=== PATIENT | female | born 1990 | race African-American/Black ===

== ENCOUNTER 2019-10-04 16:26 | Inpatient (IN) | payer OTHER, SELFPAY ==
[2019-10-04] VITALS (105 sets, daily range): BP systolic 125–185; BP diastolic 60–108; PULSE 90–116; RESP 18; TEMP 36.8; O2SAT 93–99; BMI 29.0
--- NOTE | ~2019-10-04 | XR_ITS ---
EXAMINATION: XR chest 1V portable INDICATION: hypoxia and shortness of breath TECHNIQUE: Portable AP chest at 1602 hours COMPARISON: None available FINDINGS: There are interstitial and airspace opacities of the mid and lower lung zones. No definite pleural effusion or pneumothorax is identified. The cardiomediastinal silhouette is normal. IMPRESSION: 1. Opacities of the mid and lower lung zones which could reflect atelectasis, pulmonary edema, or pos sibly pneumonia. Reviewed, dictated and finalized at location A. R PROCESSOR IMPRESSION: 1. Opacities of the mid and lower lung zones which could reflect atelectasis, p ulmonary edema, or possibly pneumonia.
--- NOTE | ~2019-10-04 | US_ITS ---
EXAMINATION: US venous doppler [facility] DATE: 10/07/2019 12:36 INDICATION: Bilateral lower limb edema TECHNIQUE: James scale images without and with compression and Doppler images of the bilateral lower e xtremity veins were obtained. COMPARISON: None. FINDINGS: The right common femoral vein, profunda femoral vein, femoral vein, popliteal vein, peroneal trunk, p osterior tibial veins, and greater saphenous vein are patent. The left common femoral vein, profunda femoral vein, femoral vein, popliteal vein, peroneal trunk, po sterior tibial veins, and greater saphenous vein are patent. IMPRESSION: 1. Patent bilateral lower extremity veins. No evidence of deep venous thrombosis. Reviewed, dictated and finalized at location A. CTOR OF MEDICAL SERVICES IMPRESSION: 1. Patent bilateral lower extremity veins. No evidence of deep venous thrombosi s.
--- NOTE | ~2019-10-04 | XR_ITS ---
EXAMINATION: XR chest 1V portable INDICATION: Shortness of breath, three days TECHNIQUE: Portable AP chest at 0839 hours COMPARISON: 10/06/2019 FINDINGS: Bilateral interstitial and airspace opacities have decreased. There is minimal airspace opa city of the lung bases. There are small pleural effusions. No pneumothorax is identified. The cardiom ediastinal silhouette is normal for technique. A calcified nodule of the right midlung zone is consis tent with old granulomatous disease. IMPRESSION: 1. Small pleural effusions. 2. Improvement in bilateral interstitial and airspace opacities with mild residual airspace opacity o f the lung bases, likely passive atelectasis. Reviewed, dictated and finalized at location A. CUTTER IMPRESSION: 1. Small pleural effusions. 2. Improvement in bilateral interstitial and airspace opacities with mild resid ual airspace opacity of the lung bases, likely passive atelectasis.
[2019-10-04] MEDS: LABETALOL HCL INJ 100 MG/20 ML VIAL 20 MG IV PUSH (17:14)
[2019-10-04 17:16] LABS: Basophils Percent Auto 0.4 % (0.2-1.2); Eosinophils Absolute Auto 0.2 K/mm3 (0-0.3); Eosinophils Percent Auto 1.8 % (0-4.4); Hematocrit 30.6 % (37.0-47.0); Hemoglobin 9.9 g/dL (12.0-15.0); Immature Granulocyte Absolute 0.04 K/mm3 (0.00-0.031); Immature Granulocyte Percent A 0.4 % (0-0.5); Immature Platelet Fraction Pct 22.3 % (0.9-11.2); Lymphocytes Absolute Auto 1.92 K/mm3 (0.9-3.2); Mean Corpuscular HGB Conc 32.4 g/dl (32-36); Mean Corpuscular Volume 86.4 fl (80-100); Mean Platelet Volume 14.4 fl (7.4-10.4); Monocytes Percent Auto 10.1 % (2.6-8.5); Neutrophils Absolute Auto 6.9 K/mm3 (1.3-6.7); Neutrophils Percent Auto 68.3 % (45.5-73.1); Platelet Count Result 118 k/mm3 (150-375); Red Blood Count 3.54 M/mm3 (4.2-5.4); Red Cell Distribution Width 15.6 % (11.5-14.5); White Blood Count 10.1 K/mm3 (4.5-10.0)
[2019-10-04 17:19] LABS: Add Urine Microscopic? YES; Appearance Urine Cloudy (Clear); Bacteria Urine Trace /hpf; Bilirubin Urine Negative (Negative); Blood Urine 1+ (Negative); Color Urine Yellow (Yellow); Glucose Urine UA Negative (Negative); Ketones Urine Negative (Negative); Leukocyte Esterase Ur Trace LEU/UL (Negative); Mucus Urine Rare /lpf; Nitrate Urine Negative (Negative); Protein Urine 3+ mg/dL (Negative); Renal Epithelial Cells Urine Rare /hpf (None Seen); Specific Grav Ur 1.012 (1.001-1.035); Squamous Epithelial Cell Urine Many /hpf (Few); Urobilinogen Urine Negative mg/dL (<2.0); WBC Urine 16-20 /hpf
[2019-10-04] MEDS: LACTATED RINGERS 1,000 ML 75 ML IV CONT (17:21)
[2019-10-04] MEDS: MAGNESIUM SULF 4 GM/WATER100ML 4 GM/100 ML BAG IVPB (17:23)
[2019-10-04 17:26] LABS: Alanine Aminotransferase 61 U/L (4-35); Albumin Level 3.3 g/dL (3.5-5.1); Alkaline Phosphatase 205 U/L (38-126); Aspartate Amino Transferase 48 U/L (14-36); Bilirubin,Total 0.3 mg/dL (0.2-1.3); Blood Urea Nitrogen 12 mg/dL (7-17); Calcium 8.7 mg/dL (8.4-10.2); Carbon Dioxide 24 mmol/L (22-30); Chloride 101 mmol/L (98-107); Estimated Glomerular Filt Rate > 60; Glucose 88 mg/dL (65-105); Lactate Dehydrogenase 628 U/L (313-618); Potassium 3.5 mmol/L (3.4-5.0); Sodium 136 mmol/L (137-145); Uric Acid 5.1 mg/dL (2.5-7.5)
[2019-10-04] MEDS: LABETALOL HCL INJ 100 MG/20 ML VIAL 40 MG IV PUSH (17:28)
[2019-10-04] MEDS: BETAMETHASONE SOD PHOS/ACETATE 30 MG/5 ML VIAL 12 MG IM (17:34)
[2019-10-04 17:36] LABS: Creatinine Urine 65.1 mg/dL
[2019-10-04 17:40] LABS: Total Protein Urine Random 391 mg/dL
[2019-10-04] MEDS: MAGNESIUM SULF 20GM/WATER500ML 500 ML 50 MG IV CONT (17:54)
[2019-10-04] MEDS: hydrALAZINE HCL 20 MG/ML VIAL 5 MG IV PUSH (18:12)
[2019-10-04] MEDS: hydrALAZINE HCL 20 MG/ML VIAL 10 MG IV PUSH (18:40)
[2019-10-04] MEDS: LABETALOL HCL 100 MG TABLET 300 MG PO (19:11)
[2019-10-05] VITALS (121 sets, daily range): BP systolic 112–152; BP diastolic 60–101; PULSE 86–111; RESP 18; TEMP 36.5–36.8; O2SAT 91–99
--- NOTE | 2019-10-05 04:05 | PM.IMHP ---
H&P: HPI History of Present Illness Chief complaint: pih donnal Narrative: Pipe Conner is a 29 year old female 34 4/7 weeks by LMP c/w ultrasound for an EDC of 11/12/[address] Ramirez. Pregancy complicated by a abnormal Quad screen for down syndrome- normal chromosomes, MTHFR mutation and depression. patient was seen with MFM-[facility] for testing and had elvated BPs and sent to [facility] for evaluation. 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 Gender identity (if verbalized by the patient): Female Spiritual care concerns: No Agree to blood products: Yes Meds Home Medications and Allergies Home Medications Medication Instructions Recorded Confirmed Type aspirin 2 tablet PO DAILY 10/04/19 10/04/19 History calcium phosphate-vitamin D3 1 tablet PO DAILY 10/04/19 10/04/19 History [Caltrate Gummy Bites] cyanocobalamin (vitamin B-12) 1,000 mcg SUBCUT MONTHLY 10/04/19 10/04/19 History ferrous sulfate 325 mg PO DAILY 10/04/19 10/04/19 History folic acid 4 mg PO DAILY 10/04/19 10/04/19 History Allergies Allergy/AdvReac Type Severity Reaction Status Date / Time No Known Allergies Allergy Verified 10/04/19 17:09 Vital Signs Vital Signs - 24 hr 10/04/19 16:49 10/04/19 16:50 10/04/19 17:07 Temperature Pulse Rate 94 94 98 Respiratory Rate Blood Pressure 180/108 H 164/100 H Blood Pressure [Left Arm] 180/108 H Pulse Oximetry 10/04/19 17:14 10/04/19 17:16 10/04/19 17:17 Temperature Pulse Rate 94 95 97 Respiratory Rate Blood Pressure 172/105 H 161/104 H Blood Pressure [Left Arm] Pulse Oximetry 97 10/04/19 17:19 10/04/19 17:21 10/04/19 17:23 Temperature Pulse Rate 94 Respiratory Rate 18 Blood Pressure 172/107 H Blood Pressure [Left Arm] Pulse Oximetry 97 10/04/19 17:24 10/04/19 17:25 10/04/19 17:27 Temperature Pulse Rate 93 90 Respiratory Rate Blood Pressure 174/100 H 167/103 H Blood Pressure [Left Arm] Pulse Oximetry 97 10/04/19 17:28 10/04/19 17:29 10/04/19 17:31 Temperature Pulse Rate 92 96 Respiratory Rate Blood Pressure 164/94 H Blood Pressure [Left Arm] Pulse Oximetry 96 10/04/19 17:34 10/04/19 17:36 10/04/19 17:39 Temperature Pulse Rate 99 Respiratory Rate Blood Pressure 158/98 H Blood Pressure [Left Arm] Pulse Oximetry 96 96 10/04/19 17:41 10/04/19 17:44 10/04/19 17:46 Temperature Pulse Rate 98 96 Respiratory Rate Blood Pressure 158/104 H 157/100 H Blood Pressure [Left Arm] Pulse Oximetry 96 10/04/19 17:49 10/04/19 17:51 10/04/19 17:54 Temperature Pulse Rate 97 Respiratory Rate 18 Blood Pressure 155/97 H Blood Pressure [Left Arm] Pulse Oximetry 95 96 10/04/19 17:56 10/04/19 17:59 10/04/19 18:01 Temperature Pulse Rate 93 97 Respiratory Rate Blood Pressure 157/98 H 152/101 H Blood Pressure [Left Arm] Pulse Oximetry 95 10/04/19 18:03 10/04/19 18:06 10/04/19 18:11 Temperature Pulse Rate 101 H 94 Respiratory Rate Blood Pressure 169/103 H 155/104 H Blood Pressure [Left Arm] Pulse Oximetry 99 10/04/19 18:16 10/04/19 18:21 10/04/19 18:26 Temperature Pulse Rate 91 95 97 Respiratory Rate Blood Pressure 152/98 H 155/101 H 162/104 H Blood Pressure [Left Arm] Pulse Oximetry 10/04/19 18:31 02
[2019-10-05] MEDS: MAGNESIUM SULF 20GM/WATER500ML 500 ML 50 MG IV CONT ×2 (04:20→14:38)
[2019-10-05 05:05] LABS: Basophils Percent Auto 0.1 % (0.2-1.2); Hemoglobin 9.4 g/dL (12.0-15.0); Immature Granulocyte Absolute 0.06 K/mm3 (0.00-0.031); Immature Granulocyte Percent A 0.7 % (0-0.5); Immature Platelet Fraction Pct 22.4 % (0.9-11.2); Lymphocytes Absolute Auto 0.86 K/mm3 (0.9-3.2); Mean Corpuscular HGB Conc 32.4 g/dl (32-36); Mean Corpuscular Hemoglobin 28.1 pg (26-34); Mean Corpuscular Volume 86.8 fl (80-100); Mean Platelet Volume 14.2 fl (7.4-10.4); Monocytes Absolute Auto 0.3 K/mm3 (0.1-0.6); Monocytes Percent Auto 3.7 % (2.6-8.5); Neutrophils Absolute Auto 7.3 K/mm3 (1.3-6.7); Neutrophils Percent Auto 85.5 % (45.5-73.1); Platelet Count Result 117 k/mm3 (150-375); Red Blood Count 3.34 M/mm3 (4.2-5.4); Red Cell Distribution Width 15.7 % (11.5-14.5); White Blood Count 8.6 K/mm3 (4.5-10.0)
[2019-10-05 05:16] LABS: Alanine Aminotransferase 53 U/L (4-35); Albumin Level 2.9 g/dL (3.5-5.1); Alkaline Phosphatase 199 U/L (38-126); Aspartate Amino Transferase 50 U/L (14-36); Bilirubin,Total 0.4 mg/dL (0.2-1.3); Blood Urea Nitrogen 11 mg/dL (7-17); Calcium 7.8 mg/dL (8.4-10.2); Carbon Dioxide 20 mmol/L (22-30); Chloride 100 mmol/L (98-107); Estimated CRCL calculation 112 ml/min; Estimated Glomerular Filt Rate > 60; Glucose 105 mg/dL (65-105); Potassium 4.1 mmol/L (3.4-5.0); Sodium 134 mmol/L (137-145); Uric Acid 5.3 mg/dL (2.5-7.5)
[2019-10-05] MEDS: LACTATED RINGERS 1,000 ML 75 ML IV CONT ×2 (06:41→19:45)
[2019-10-05] MEDS: LABETALOL HCL 100 MG TABLET 300 MG PO ×2 (08:12→20:21)
[2019-10-05] MEDS: BETAMETHASONE SOD PHOS/ACETATE 30 MG/5 ML VIAL 12 MG IM (17:20)
[2019-10-06] VITALS (178 sets, daily range): BP systolic 109–153; BP diastolic 62–111; PULSE 81–102; RESP 18–22; TEMP 36.4–36.9; O2SAT 77–100
[2019-10-06] MEDS: MAGNESIUM SULF 20GM/WATER500ML 500 ML 50 MG IV CONT (00:32)
[2019-10-06 05:27] LABS: Hematocrit 28.7 % (37.0-47.0); Hemoglobin 8.9 g/dL (12.0-15.0); Immature Platelet Fraction Pct 25.9 % (0.9-11.2); Mean Corpuscular Hemoglobin 27.1 pg (26-34); Mean Corpuscular Volume 87.2 fl (80-100); Platelet Count Result 130 k/mm3 (150-375); Red Blood Count 3.29 M/mm3 (4.2-5.4); Red Cell Distribution Width 16.2 % (11.5-14.5); White Blood Count 11.3 K/mm3 (4.5-10.0)
[2019-10-06 05:37] LABS: Alanine Aminotransferase 78 U/L (4-35); Alkaline Phosphatase 196 U/L (38-126); Aspartate Amino Transferase 69 U/L (14-36); Bilirubin,Total 0.3 mg/dL (0.2-1.3); Blood Urea Nitrogen 13 mg/dL (7-17); Calcium 6.5 mg/dL (8.4-10.2); Carbon Dioxide 19 mmol/L (22-30); Chloride 98 mmol/L (98-107); Estimated CRCL calculation 99 ml/min; Estimated Glomerular Filt Rate > 60; Glucose 113 mg/dL (65-105); Potassium 4.2 mmol/L (3.4-5.0); Sodium 131 mmol/L (137-145); Uric Acid 6.2 mg/dL (2.5-7.5)
[2019-10-06] MEDS: AMPICILLIN 2 GM/NS 100 ML 2 GM/100 ML BAG IVPB (05:48)
--- NOTE | 2019-10-06 05:55 | LDADM ---
This patient, Pipe Conner, was moved to OB labor room 106 on 10/06/19 at 05:31. Plans for labor, pain management and were discussed with patient. Patient/family oriented to hospital policies and general routines including ID bracelet, bed and alarms, visiting hours, pain management, procedures, bathroom and other care routines, personal items, smoking policy, room service/diet and guest tray routines, security routines, and visiting hours. Patient/Family are encouraged to report perceived risks to care and to ask questions if they do not understand what they are told or what they should do. See OBIX for further documentation.
[2019-10-06] MEDS: LACTATED RINGERS 1,000 ML 75 ML IV CONT (08:07)
--- NOTE | 2019-10-06 08:20 | WPDANESEPP ---
Anes - Eval Pre Procedure Procedure: Labor Epidural Date/Time: 10/06/19 09:00 Surgeon: Cristi Preop Diagnosis: 34 5/7 wk IUP, labor pain, HELLP syndrome Pre Op Diagnosis: pih eval Patient Data Age: 29 Gender: F Height: 5 ft 7 in Weight: 84 kg Last Vital Signs Temp 36.8 C 10/06/19 07:30 Pulse 89 10/06/19 08:59 Resp 20 10/06/19 05:33 BP 133/78 10/06/19 08:59 Pulse Ox 100 10/06/19 08:59 Allergies Allergy/AdvReac Type Severity Reaction Status Date / Time No Known Allergies Allergy Verified 10/04/19 17:09 Home Medications Medication Instructions Recorded Confirmed Type aspirin 2 tablet PO DAILY 10/04/19 10/04/19 History calcium phosphate-vitamin D3 1 tablet PO DAILY 10/04/19 10/04/19 History [Caltrate Gummy Bites] cyanocobalamin (vitamin B-12) 1,000 mcg SUBCUT MONTHLY 10/04/19 10/04/19 History ferrous sulfate 325 mg PO DAILY 10/04/19 10/04/19 History folic acid 4 mg PO DAILY 10/04/19 10/04/19 History Laboratory Tests 10/06/19 10/06/19 10/06/19 05:00 05:00 05:00 WBC 11.3 K/mm3 H K/mm3 (4.5-10.0) RBC 3.29 M/mm3 L M/mm3 (4.2-5.4) Hgb 8.9 g/dL L g/dL (12.0-15.0) Hct 28.7 % L % (37.0-47.0) MCV 87.2 fl fl (80-100) MCH 27.1 pg pg (26-34) MCHC 31.0 g/dl L g/dl (32-36) RDW 16.2 % H % (11.5-14.5) Plt Count 130 k/mm3 L k/mm3 (150-375) MPV TNP % Immature Plt Fraction 25.9 % H % (0.9-11.2) Sodium 131 mmol/L L mmol/L (137-145) Potassium 4.2 mmol/L mmol/L (3.4-5.0) Chloride 98 mmol/L mmol/L (98-107) Carbon Dioxide 19 mmol/L L mmol/L (22-30) BUN 13 mg/dL mg/dL (7-17) Creatinine 0.80 mg/dL mg/dL (0.7-1.0) Estim Creat Clear Calc 99 ml/min ml/min Estimated GFR > 60 (59 - ) Glucose 113 mg/dL H mg/dL (65-105) Uric Acid 6.2 mg/dL mg/dL (2.5-7.5) Calcium 6.5 mg/dL L mg/dL (8.4-10.2) Total Bilirubin 0.3 mg/dL mg/dL (0.2-1.3) AST 69 U/L H U/L (14-36) ALT 78 U/L H U/L (4-35) Alkaline Phosphatase 196 U/L H U/L (38-126) Total Protein 6.0 g/dL L g/dL (6.3-8.2) Albumin 3.0 g/dL L g/dL (3.5-5.1) RPR Pending Blood Type Antibody Screen 10/06/19 05:00 WBC RBC Hgb Hct MCV MCH MCHC RDW Plt Count MPV % Immature Plt Fraction Sodium Potassium Chloride Carbon Dioxide BUN Creatinine Estim Creat Clear Calc Estimated GFR Glucose Uric Acid Calcium Total Bilirubin AST ALT Alkaline Phosphatase Total Protein Albumin RPR Blood Type O Positive Antibody Screen Negative Patient hx anesthesia problems: none Family hx anesthesia problems: none PMFSH Past Medical History Medical History HELLP (hemolytic anemia/elev liver enzymes/low platelets in ) Severe preeclampsia Family History Family History Mother Diabetes mellitus Breast cancer Father Lung cancer Social History Social History Social History: Single lives with mother Smoking status: Never smoker Tobacco type: cigarettes Second hand tobacco smoke exposure: Yes Alcohol intake: never Substance use: never Living arrangements: with family Occupation/Education: occupation 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
[2019-10-06] MEDS: AMPICILLIN 1 GM/NS 50 ML 1 GM/50 ML BAG IVPB (10:34)
[2019-10-06] MEDS: SODIUM CHLORIDE 0.9% IV 300 ML 600 ML I-UTERINE (10:34)
--- NOTE | 2019-10-06 10:46 | P.PNOB_ITS ---
OB - PN: Subj Subjective Date/time seen: 10/06/19 10:46 Narrative: Patient doing okay s/p epidural no complaints. denies headaches shortness of breath, RUQ pain or visual changes and positive movement OB - PN: Obj Data Labs CBC & Chem 7: 10/06/19 05:00 10/06/19 05:00 Labs: Laboratory Results - last 24 hr 10/06/19 10/06/19 10/06/19 05:00 05:00 05:00 WBC 11.3 H RBC 3.29 L Hgb 8.9 L Hct 28.7 L MCV 87.2 MCH 27.1 MCHC 31.0 L RDW 16.2 H Plt Count 130 L MPV TNP % Immature Plt Fraction 25.9 H Sodium 131 L Potassium 4.2 Chloride 98 Carbon Dioxide 19 L BUN 13 Creatinine 0.80 Estim Creat Clear Calc 99 Estimated GFR > 60 Glucose 113 H Uric Acid 6.2 Calcium 6.5 L Total Bilirubin 0.3 AST 69 H ALT 78 H Alkaline Phosphatase 196 H Total Protein 6.0 L Albumin 3.0 L Blood Type O Positive Antibody Screen Negative OB - PN A/P Assessment and Plan (1) HELLP (hemolytic anemia/elev liver enzymes/low platelets in ): Code(s): O14.20 - HELLP syndrome (HELLP), unspecified trimester Status: Acute (2) Severe preeclampsia: Code(s): O14.10 - Severe pre-eclampsia, unspecified trimester Status: Acute Assessment and Plan: IOL as planned. Time Spent With Patient Time: Total time spent is greater than 50% in coordination of care (as documented) at patient's floor/unit and/or counseling patient: Exam Const: General: comfortable Resp: Effort & Inspection: normal respiratory effort Urinary Catheter: Urinary Catheter: patent and draining Psych: Other: EXtremities pitting edema to upper thigh AROM thick meconium 4/70/-2 intrauterine pregnacn catheter and scalp electode placed without difficulty fetus- min-mod variability with occassional variables, accelerations with st imulation
[2019-10-06] MEDS: LABETALOL HCL 100 MG TABLET 300 MG PO ×2 (11:52→20:41)
[2019-10-06] MEDS: FUROSEMIDE INJ 40 MG/4 ML VIAL 10 MG IV PUSH (12:29)
[2019-10-06] MEDS: ONDANSETRON INJ 4 MG/2 ML VIAL IV PUSH (12:39)
--- NOTE | 2019-10-06 14:16 | PM.OBPRVD ---
OB - Delivery Note Procedure Delivery date: 10/06/19 Procedure: favd events: Meconium Stained Fluid Intrapartal events: Severe Preeclampsia and HELLP Syndrome Induction method: AROM and per pitocin protocol Delivery monitor: internal FHT and internal uterine Route of delivery: forceps Indication for instrumentation: maternal exhaustion Laceration description: Perineal - 2nd Degree Delivery repair: vicryl Estimated blood loss (mL): 400 [place] Baby Date of : 10/06/19 Time of : 13:46 Weeks of gestation at delivery: 34 Infant gender: Male Weight (pounds): 5 Weight (ounces): 2 presentation: vertex position: Left Occiput Anterior Placenta delivery description: Spontaneous cord vessel description: 3 Vessels and Clamped/Cut score one minute: 8 score five minutes: 9
[2019-10-06 14:38] LABS: Hematocrit 23.9 % (37.0-47.0); Hemoglobin 7.5 g/dL (12.0-15.0); Immature Platelet Fraction Pct 21.9 % (0.9-11.2); Mean Corpuscular HGB Conc 31.4 g/dl (32-36); Mean Corpuscular Hemoglobin 27.7 pg (26-34); Mean Corpuscular Volume 88.2 fl (80-100); Mean Platelet Volume 14.2 fl (7.4-10.4); Platelet Count Result 116 k/mm3 (150-375); Red Blood Count 2.71 M/mm3 (4.2-5.4); Red Cell Distribution Width 16.2 % (11.5-14.5); White Blood Count 12.7 K/mm3 (4.5-10.0)
[2019-10-06 14:46] LABS: Prothrombin Time 12.5 Seconds (11.1-14.7)
[2019-10-06 15:25] LABS: Fibrinogen 240 mg/dl (215-510)
--- NOTE | 2019-10-06 15:25 | WPDCN ---
Assessment and Plan Assessment and plan (1) Acute respiratory failure with hypoxia: Code(s): J96.01 - Acute respiratory failure with hypoxia Status: Acute Assessment and Plan: Secondary to pulmonary edema. Pulmonary embolism and fat embolism felt to be less likely given chest x-ray findings. Should she fail to improve with diuresis, would consider chest CTA. (2) Pulmonary edema: Code(s): J81.1 - Chronic pulmonary edema Status: Acute Assessment and Plan: She will be diuresed with Lasix b.i.d. Close monitoring of volume status. Would be prudent to obtain echocardiogram. (3) HELLP (hemolytic anemia/elev liver enzymes/low platelets in ): Code(s): O14.20 - HELLP syndrome (HELLP), unspecified trimester Status: Acute Assessment and Plan: Dr. Colin suspects HELLP syndrome. Current labs would indicate that it is very mild. We will monitor platelets, LFTs, and LDH daily. (4) Severe preeclampsia: Code(s): O14.10 - Severe pre-eclampsia, unspecified trimester Status: Acute Assessment and Plan: Blood pressure is much improved with the addition of labetalol, which will be continued. Hydralazine will be added p.r.n. Case discussed with attending hospitalist, Dr. Bucky Vergara, who is in agreement with the above plan. HPI Data of Consult Date/Time: 10/06/19 15:20 Requesting Physician: Jimenez Colin MD Primary Care Provider: Rickey RamirezMD Consult Narrative Narrative: Pipe Conner is a 29 year old female whom the hosptialist service has been consulted for evaluation of hypoxia. She is a female, status post vaginal delivery with forceps not quite 2 hours prior to my contact with her. With the exception of fluid retention in the lower extremities and GERD, her was reportedly unremarkable. Per Dr. Colin documentation, she had an abnormal Quad screen for Down Syndrome with normal chromosomes. Her blood pressures began to rise 2 days ago on Monday, documented at 180/108 on arrival 10/04/2019. She was treated with hydralazine and labetolol and was started on magnesium for severe preeclampsia. Blood pressures are much improved while receiving labetolol 300 mg b.i.d. In any regard, she became hypoxic while pushing, reportedly with an SpO2 in the 70's, requiring up to 6 liters nasal cannula at 1 point time. She has now been weaned to 4 liters. At the time of my evaluation, she reports feeling exhausted. She has no other complaints and specifically denies denies headache, chest pain, racing heart, palpitations, abdominal pain, nausea, and vomiting. No significant bleeding. Review of Systems Review of Systems: All systems reviewed & are unremarkable except as noted in HPI and below PMFSH Past Medical History Medical History (Updated 10/06/19 @ 23:22 by Kandy Roberson PA-C) Depression Iron deficiency anemia Surgical History Surgical History (Updated 10/06/19 @ 23:23 by Kanyd Roberson PA-C) No history of previous surgery Family History Family History Mother Diabetes mellitus Breast cancer Father Lung cancer Social History Social History (Updated 10/06/19 @ 23:24 by Kandy Roberson PA-C) Social History: The patient is single and lives with her mother in [place]. Her mother, Lauren, as her surrogate decision maker and she wishes to be a full code. No alcohol, tobacco, or drug use. 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
[2019-10-06 15:38] LABS: Alanine Aminotransferase 72 U/L (4-35); Albumin Level 2.5 g/dL (3.5-5.1); Alkaline Phosphatase 139 U/L (38-126); Aspartate Amino Transferase 66 U/L (14-36); Bilirubin,Total 0.2 mg/dL (0.2-1.3); Blood Urea Nitrogen 14 mg/dL (7-17); Calcium 6.1 mg/dL (8.4-10.2); Carbon Dioxide 20 mmol/L (22-30); Chloride 100 mmol/L (98-107); Estimated CRCL calculation 99 ml/min; Estimated Glomerular Filt Rate > 60; Glucose 189 mg/dL (65-105); Potassium 3.8 mmol/L (3.4-5.0); Sodium 130 mmol/L (137-145); Uric Acid 6.3 mg/dL (2.5-7.5)
[2019-10-06 16:46] LABS: Reticulocyte Hemoglobin Conten 32.1 pg (28.2-35.7); Reticulocyte Percent 2.44 % (0.7-4.3); Reticulocytes Absolute 0.06 B/L (32.2-175.7)
[2019-10-06 16:58] LABS: D Dimer 1.88 ug/mL (<0.48); Lactate Dehydrogenase 723 U/L (313-618)
[2019-10-06 17:08] LABS: NT Pro B Type Natriuretic Pept 1820 PG/ML (5-100)
--- NOTE | 2019-10-06 18:43 | PC.NURSE ---
Patient transferred from OB to room 214 at 1715.
[2019-10-06] MEDS: FUROSEMIDE INJ 40 MG/4 ML VIAL 20 MG IV PUSH (18:50)
[2019-10-06] MEDS: POLYSACCHARIDE IRON COMPLEX 150 MG CAPSULE PO (20:42)
[2019-10-07] VITALS (16 sets, daily range): BP systolic 127–144; BP diastolic 77–97; PULSE 82–100; RESP 16–20; TEMP 36–37.3; O2SAT 96–100
--- NOTE | 2019-10-07 | ECHO_ITS ---
Patient Info Name: Pipe Conner Age: 29 years : 1990 Gender: Female Ht: 67 in Wt: 185 lbs BSA: 2.01 m2 HR: 88 bpm BP: 135 / 92 mmHg Heart Rhythm: Sinus Rhythm Technical Quality: Good Exam Date: 10/07/2019 8:47 AM Exam Location: [facility] Pulmonary Patient Status: Inpatient Admit Date: 10/06/2019 Staff Ordering Physician: Kandy Roberson PA-C [employer] Teacher: Abdelrahman Topete, MORGAN, RT Attending Provider: Jimenez Colin MD Referring Physician: Karol MOON; Exam Type: CA echo doppler color flow Study Info Indications I26.90 - Septic pulmonary embolism without acute cor pulmonale Summary 1. Left ventricular chamber dimension is normal. 2. Left ventricular systolic function is normal, estimated at 60-65%. 3. There is mildly increased left ventricular wall thickness. 4. Left ventricular septal wall motion is normal. 5. The left ventricular diastolic function is abnormal. 6. Left atrial chamber dimension is mildly enlarged. 7. There is mild mitral valve regurgitation. 8. There is mild tricuspid valve regurgitation. Left Ventricle Left ventricular chamber dimension is normal. Left ventricular systolic function is normal, estimated at 60-65%. There is mildly increased left ventricular wall thickness. Left ventricular septal wall motion is normal. The left ventricular diastolic function is abnormal. Right Ventricle Right ventricular chamber dimension is normal. Right ventricular systolic function is normal. Left Atria Left atrial chamber dimension is mildly enlarged. Right Atria Right atrial chamber dimension is normal. Atrial Septum Intact interatrial septum visualized by color flow imaging. Aortic Valve The aortic valve is trileaflet. There is no aortic valve sclerosis. There is no aortic valve stenosis. There is trace aortic valve regurgitation. Pulmonic Valve The pulmonic valve is normal. There is no pulmonic valve stenosis. There is trace pulmonic regurgitation. Mitral Valve The mitral valve has thickened leaflets. There is no mitral valve stenosis. There is mild mitral valve regurgitation. Tricuspid Valve The tricuspid valve leaflets are normal. There is no significant tricuspid valve stenosis. There is mild tricuspid valve regurgitation. No tricuspid valve vegetation visualized. Pericardium/Pleural The pericardium appears normal. There is small pericardial effusion. Inferior Vena Cava Normal inferior vena cava with >50% collapse upon inspiration consistent with normal right atrial pressure, 5 mmHg. Aorta The aortic root size at the sinus of Valsalva is normal. The prox ascending aorta size is normal. Left Ventricular Outflow Tract Name Value Normal LVOT 2D LVOT Diameter 2.0 cm LVOT Doppler LVOT Peak Gradient 8 mmHg LVOT Mean Gradient 4 mmHg LVOT VTI 25 cm LVOT VTI/AV VTI Ratio 0.8 LVOT Stroke Volume 77 ml LVOT CO 8.1 l/min LVOT CI
[2019-10-07 04:59] LABS: Basophils Percent Auto 0.1 % (0.2-1.2); Eosinophils Percent Auto 0.1 % (0-4.4); Immature Granulocyte Absolute 0.08 K/mm3 (0.00-0.031); Immature Granulocyte Percent A 0.6 % (0-0.5); Immature Platelet Fraction Pct 20.4 % (0.9-11.2); Lymphocytes Absolute Auto 1.44 K/mm3 (0.9-3.2); Lymphocytes Percent Auto 11.6 % (18.3-44.2); Mean Corpuscular HGB Conc 31.9 g/dl (32-36); Mean Corpuscular Hemoglobin 27.4 pg (26-34); Mean Corpuscular Volume 86.1 fl (80-100); Monocytes Absolute Auto 1.3 K/mm3 (0.1-0.6); Monocytes Percent Auto 10.5 % (2.6-8.5); Neutrophils Absolute Auto 9.6 K/mm3 (1.3-6.7); Neutrophils Percent Auto 77.1 % (45.5-73.1); Platelet Count Result 121 k/mm3 (150-375); Red Blood Count 2.37 M/mm3 (4.2-5.4); Red Cell Distribution Width 15.9 % (11.5-14.5); White Blood Count 12.5 K/mm3 (4.5-10.0)
[2019-10-07 05:10] LABS: Alanine Aminotransferase 75 U/L (4-35); Albumin Level 2.1 g/dL (3.5-5.1); Alkaline Phosphatase 112 U/L (38-126); Aspartate Amino Transferase 64 U/L (14-36); Bilirubin,Total 0.2 mg/dL (0.2-1.3); Blood Urea Nitrogen 14 mg/dL (7-17); Calcium 6.3 mg/dL (8.4-10.2); Carbon Dioxide 27 mmol/L (22-30); Chloride 101 mmol/L (98-107); Estimated CRCL calculation 88 ml/min; Estimated Glomerular Filt Rate > 60; Glucose 86 mg/dL (65-105); Lactate Dehydrogenase 778 U/L (313-618); Potassium 4.1 mmol/L (3.4-5.0); Sodium 134 mmol/L (137-145)
[2019-10-07 05:14] LABS: Hematocrit 20.4 % (37.0-47.0); Hemoglobin 6.5 g/dL (12.0-15.0)
--- NOTE | 2019-10-07 09:25 | PM.OBPNVD ---
OB - PN: Subj Subjective Date/time seen: 10/07/19 09:25 Interval history: no SOB Patient comments: other (only complaint is hemorrhoid pain) [place] feeding status: breast and bottle feeding OB - PN: Obj Data Labs CBC & Chem 7: 10/07/19 04:33 10/07/19 04:33 Labs: Laboratory Results - last 24 hr 10/06/19 10/06/19 10/06/19 14:24 14:24 14:24 WBC 12.7 H RBC 2.71 L Hgb 7.5 L Hct 23.9 L MCV 88.2 MCH 27.7 MCHC 31.4 L RDW 16.2 H Plt Count 116 L MPV 14.2 H Immature Gran % (Auto) Neut % (Auto) Lymph % (Auto) Will % (Auto) Eos % (Auto) Baso % (Auto) Lymph # (Auto) Will # (Auto) Eos # (Auto) Baso # (Auto) Abs Immat Gran (auto) Absolute Neuts (auto) Absolute Nucleated RBC Nucleated RBC % % Immature Plt Fraction 21.9 H Absolute Retic Percent Retic Immature Retic Fraction Retic Hgb Content PT 12.5 INR 1.0 APTT 23.0 Fibrinogen 240 D-Dimer Sodium Potassium Chloride Carbon Dioxide BUN Creatinine Estim Creat Clear Calc Estimated GFR Glucose Uric Acid Calcium Total Bilirubin AST ALT Alkaline Phosphatase Lactate Dehydrogenase NT-Pro-B Natriuret Pep Total Protein Albumin 10/06/19 10/06/19 10/06/19 15:22 16:40 16:40 WBC RBC Hgb Hct MCV MCH MCHC RDW Plt Count MPV Immature Gran % (Auto) Neut % (Auto) Lymph % (Auto) Will % (Auto) Eos % (Auto) Baso % (Auto) Lymph # (Auto) Will # (Auto) Eos # (Auto) Baso # (Auto) Abs Immat Gran (auto) Absolute Neuts (auto) Absolute Nucleated RBC Nucleated RBC % % Immature Plt Fraction Absolute Retic 0.06 L Percent Retic 2.44 Immature Retic Fraction 19.0 H Retic Hgb Content 32.1 PT INR APTT Fibrinogen D-Dimer 1.88 H Sodium 130 L Potassium 3.8 Chloride 100 Carbon Dioxide 20 L BUN 14 Creatinine 0.80 Estim Creat Clear Calc 99 Estimated GFR > 60 Glucose 189 H Uric Acid 6.3 Calcium 6.1 L Total Bilirubin 0.2 AST 66 H ALT 72 H Alkaline Phosphatase 139 H Lactate Dehydrogenase NT-Pro-B Natriuret Pep Total Protein 5.0 L Albumin 2.5 L 10/06/19 10/07/19 10/07/19 16:40 04:33 04:33 WBC 12.5 H RBC 2.37 L Hgb 6.5 L* Hct 20.4 L* MCV 86.1 MCH 27.4 MCHC 31.9 L RDW 15.9 H Plt Count 121 L MPV 14.0 H Immature Gran % (Auto) 0.6 H Neut % (Auto) 77.1 H Lymph % (Auto) 11.6 L Will % (Auto) 10.5 H Eos % (Auto) 0.1 Baso % (Auto) 0.1 L Lymph # (Auto) 1.44 Will # (Auto) 1.3 H Eos # (Auto) 0.0 Baso # (Auto) 0.0 Abs Immat Gran (auto) 0.08 H Absolute Neuts (auto) 9.6 H Absolute Nucleated RBC 0.0 Nucleated RBC % 0.0 % Immature Plt Fraction 20.4 H Absolute Retic Percent Retic Immature Retic Fraction Retic Hgb Content PT INR APTT Fibrinogen D-Dimer Sodium 134 L Potassium 4.1 Chloride 101 Carbon Dioxide 27 BUN 14 Creatinine 0.90 Estim Creat Clear Calc 88 Estimated GFR > 60 Glucose 86 Uric Acid Calcium 6.3 L Total Bilirubin 0.2 AST 64 H ALT 75 H Alkaline Phosphatase 112 Lactate Dehydrogenase 723 H 778 H NT-Pro-B Natriuret Pep 1820 H Total Protein 5.0 L Albumin 2.1 L Imaging Radiologist's impression: Impressions Chest X-Ray 10/06/19 16:15 IMPRESSION: 1. Opacities of the mid and lower lung zones which could reflect atelectasis, pulmonary edema, or possibly pneumonia. OB - PN A/P Assessment and Plan (1) (normal spontaneous vaginal delivery): Code(s): O80 - Encounter for full-term uncomplicated delivery Status: Acute Assessment and Plan: Doing well. Will have RN instruct on pericare and hemorrhoids (2) HELLP (he
[2019-10-07] MEDS: MULTIVIT/MIN/PREN/FOL AC/IRON TABLET 1 TAB PO (10:37)
[2019-10-07] MEDS: POLYSACCHARIDE IRON COMPLEX 150 MG CAPSULE PO ×2 (10:37→16:48)
[2019-10-07] MEDS: LABETALOL HCL 100 MG TABLET 300 MG PO ×2 (10:37→21:18)
[2019-10-07] MEDS: FERROUS SULFATE 324 MG TABLET PO (10:37)
[2019-10-07] MEDS: FUROSEMIDE INJ 40 MG/4 ML VIAL 20 MG IV PUSH ×2 (10:38→16:48)
[2019-10-07 10:56] LABS: Rapid Plasma Reagin Non-Reactive (NonReactive)
--- NOTE | 2019-10-07 14:28 | PM.IMPN ---
Progress Note: A&P Assessment and Plan (1) Acute respiratory failure with hypoxia: Code(s): J96.01 - Acute respiratory failure with hypoxia Status: Resolved Assessment and Plan: Secondary to pulmonary edema. Pt is on RA. Should she fail to improve with diuresis, would consider chest CTA. (2) Pulmonary edema: Code(s): J81.1 - Chronic pulmonary edema Status: Resolved Assessment and Plan: She will be diuresed with Lasix b.i.d. IV can transition to oral when OB are ready Echo completed Pt can have rpt CXR as per OB (3) HELLP (hemolytic anemia/elev liver enzymes/low platelets in ): Code(s): O14.20 - HELLP syndrome (HELLP), unspecified trimester Status: Acute Assessment and Plan: Dr. Colin suspects HELLP syndrome. Platelets, LFTs, and LDH daily. order US of liver (4) Severe preeclampsia: Code(s): O14.10 - Severe pre-eclampsia, unspecified trimester Status: Acute Assessment and Plan: Blood pressure is much improved with labetalol,and prn hydralazine Subjective Date/time seen: 10/07/19 14:28 Interval history: Pipe Conner is a 29 year old female 34 under the care of Dr. Ramirez from [place]. Pt had high Bps after delivery 150/90. Pt treated for pre- eclampsia + HELLP syndrome and pulmonary edema in medical floor. Bp improved on hydralazine and labetalol, to 139/ 70. lfts high at 64/75. plt are 121. Pt has no history of HTN during or in the past. Pt had ECHo and venous doppler of legs. Pt breathing has improved otherwise is asymptomatic, stable to transfer back to OB floor as pulmonary edema is improving Review of Systems Review of Systems: All systems reviewed & are unremarkable except as noted in HPI and below Respiratory: Respiratory: Reports dyspnea and Denies wheezing Gastrointestinal: Gastrointestinal: Denies abdominal pain Exam Narrative: Exam Narrative: General: Well-developed. HEENT: Normocephalic Neck: Supple. No JVD. Respiratory: On RA, lungs are clear today Cardiovascular: Regular rate and rhythm with S1-S2. Gastrointestinal: Abdomen is nontender and nondistended with positive bowel sounds. Skin: Warm and dry. No rash or lesions on limited exam. Extremities: No cyanosis or clubbing. Pitting edema to thighs. No calf pain with negative Gerri sign. Neurological: Alert. Cranial nerves 2-12 grossly intact. No gross focal deficits to casual conversation. Psychiatric: Pleasant and cooperative with normal mood and affect. Judgment and insight intact. Objective Data Vital Signs Vital Signs: Vital Signs - 24 hr 10/06/19 14:33 10/06/19 14:38 10/06/19 14:43 Temperature Pulse Rate Respiratory Rate Blood Pressure Pulse Oximetry 96 95 96 10/06/19 14:46 10/06/19 14:48 10/06/19 14:53 Temperature Pulse Rate 90 Respiratory Rate Blood Pressure 133/83 Pulse Oximetry 98 94 10/06/19 14:58 10/06/19 15:01 10/06/19 15:03 Temperature Pulse Rate 87 Respiratory Rate Blood Pressure 147/111 H Pulse Oximetry 96 97 10/06/19 15:08 10/06/19 15:13 10/06/19 15:16 Temperature Pulse Rate 82 Respiratory Rate Blood Pressure 129/79 Pulse Oximetry 97 99 10/06/19 15:18 10/06/19 15:23 10/06/19 15:28 Temperature Pulse Rate Respiratory Rate Blood Pressure Pulse Oximetry 100 100 98 10/06/19 15:31 10/06/19 15:33 10/06/19 15:38 Temperature Pulse Rate 85 Respiratory Rate Blood Pressure 128/76 Pulse Oximetry 100 97 10/06/19 15:43 10/06/19 15:46 10/06/19 15:48 Temperature Pulse Rate 84 Respiratory Rate Blood Pressure 124/80 Pulse Oximetry 98 99 10/06/19 15:53 10/06/19 15:58 10/06/19 16:01 Temperature Pulse Rate Respiratory Rate Blood Pressure 117/94 H Pulse Oximetry 100 96 10/06/19 16:03 10/06/19 16:08 10/06/19 16:13 Temperature Pul
--- NOTE | 2019-10-07 14:30 | PC.NURSE ---
This patient, Pipe Conner, was transferred to [[id number]] on 10/07/19 at 1430. Personal belongings sent with patient. Belongings list checked and signed with receiving [ ]. Report given to [Chandni JOHNSON]. Appropriate documentation sent with patient.
[2019-10-07] MEDS: DIBUCAINE 1% OINTMENT 30 GM TUBE 1 APPLIC TOPICAL (15:00)
--- NOTE | 2019-10-07 16:10 | PC.NURSE ---
Instructions given on breast pump care and usage, pumping schedule, nipple care, and collection and storage of breast milk. Encouraged [id number], breast massage and manual expression to stimulate supply. Pumping log provided and reviewed. Assessed patient for correct flange size, placement and draw. Patient verbalizes and demonstrates understanding of instructions.
--- NOTE | 2019-10-07 16:12 | PC.NURSE ---
Patient transferred to post room #281 via wheelchair. Support person not present at this time. Oriented to unit, room, information board, rooming in, admission packet and security measures. Patient verbalizes understanding.
[2019-10-07] MEDS: IBUPROFEN 600 MG TABLET PO (16:49)
[2019-10-07] MEDS: DOCUSATE SODIUM 100 MG CAPSULE PO (16:50)
--- NOTE | 2019-10-07 21:38 | PC.NURSE ---
While in this patient's room to accompany her to the restroom the patient asked, Do I have the right to not breastfeed? I replied, Absolutely. Well then, I don't want to. states the patient. I agreed and told her she does not need to continue pumping.
[2019-10-08 04:56] VITALS: BP 133/81; PULSE 100; RESP 16; TEMP 37.4; O2SAT 100
[2019-10-08 06:01] LABS: Basophils Percent Auto 0.2 % (0.2-1.2); Eosinophils Absolute Auto 0.1 K/mm3 (0-0.3); Immature Granulocyte Absolute 0.07 K/mm3 (0.00-0.031); Immature Granulocyte Percent A 0.6 % (0-0.5); Immature Platelet Fraction Pct 15.4 % (0.9-11.2); Lymphocytes Absolute Auto 2.21 K/mm3 (0.9-3.2); Mean Corpuscular HGB Conc 31.3 g/dl (32-36); Mean Corpuscular Hemoglobin 27.9 pg (26-34); Mean Corpuscular Volume 88.9 fl (80-100); Mean Platelet Volume 13.8 fl (7.4-10.4); Monocytes Absolute Auto 1.3 K/mm3 (0.1-0.6); Monocytes Percent Auto 10.3 % (2.6-8.5); Neutrophils Absolute Auto 8.6 K/mm3 (1.3-6.7); Neutrophils Percent Auto 69.9 % (45.5-73.1); Nucleated Red Blood Cells Perc 0.2 % (0.0-0.2); Platelet Count Result 139 k/mm3 (150-375); Red Blood Count 2.26 M/mm3 (4.2-5.4); Red Cell Distribution Width 16.3 % (11.5-14.5); White Blood Count 12.3 K/mm3 (4.5-10.0)
[2019-10-08 06:03] LABS: Hematocrit 20.1 % (37.0-47.0); Hemoglobin 6.3 g/dL (12.0-15.0)
[2019-10-08 06:16] LABS: Alanine Aminotransferase 93 U/L (4-35); Albumin Level 2.3 g/dL (3.5-5.1); Alkaline Phosphatase 98 U/L (38-126); Aspartate Amino Transferase 74 U/L (14-36); Bilirubin,Total 0.2 mg/dL (0.2-1.3); Blood Urea Nitrogen 17 mg/dL (7-17); Calcium 7.5 mg/dL (8.4-10.2); Carbon Dioxide 29 mmol/L (22-30); Chloride 101 mmol/L (98-107); Estimated CRCL calculation 86 ml/min; Estimated Glomerular Filt Rate > 60; Glucose 118 mg/dL (65-105); Potassium 4.1 mmol/L (3.4-5.0); Sodium 135 mmol/L (137-145); Uric Acid 6.5 mg/dL (2.5-7.5)
[2019-10-08 07:30] VITALS: BP 124/83; PULSE 87; RESP 18; TEMP 37.6; O2SAT 98
[2019-10-08] MEDS: LABETALOL HCL 100 MG TABLET 300 MG PO ×2 (08:54→20:19)
[2019-10-08] MEDS: FUROSEMIDE 20 MG TABLET PO ×2 (08:54→17:14)
[2019-10-08] MEDS: POLYSACCHARIDE IRON COMPLEX 150 MG CAPSULE PO ×2 (08:54→17:14)
--- NOTE | 2019-10-08 09:22 | PM.OBPNVD ---
OB - PN: Subj Subjective Date/time seen: 10/08/19 09:22 Interval history: Pipe Conner is a 29 year old female [address] under the care of Dr. Ramirez from [place]. Pt had high Bps after delivery 150/90. Pt treated for pre- eclampsia + HELLP syndrome and pulmonary edema in medical floor. Bp improved on hydralazine and labetalol, to 139/ 70. lfts high at 64/75. plt are 121. Pt has no history of HTN during or in the past. Pt had ECHo and venous doppler of legs. Pt breathing has improved otherwise is asymptomatic, stable to transfer back to OB floor as pulmonary edema is improving Patient comments: pain well controlled, tolerating diet and flatus present OB - PN: Obj Data Labs CBC & Chem 7: 10/08/19 05:31 10/08/19 05:31 Labs: Laboratory Results - last 24 hr 10/06/19 10/08/19 10/08/19 05:00 05:31 05:31 WBC 12.3 H RBC 2.26 L Hgb 6.3 L* Hct 20.1 L* MCV 88.9 MCH 27.9 MCHC 31.3 L RDW 16.3 H Plt Count 139 L MPV 13.8 H Immature Gran % (Auto) 0.6 H Neut % (Auto) 69.9 Lymph % (Auto) 18.0 L [place] % (Auto) 10.3 H Eos % (Auto) 1.0 Baso % (Auto) 0.2 Lymph # (Auto) 2.21 [place] # (Auto) 1.3 H Eos # (Auto) 0.1 Baso # (Auto) 0.0 Abs Immat Gran (auto) 0.07 H Absolute Neuts (auto) 8.6 H Absolute Nucleated RBC 0.0 Nucleated RBC % 0.2 % Immature Plt Fraction 15.4 H Sodium 135 L Potassium 4.1 Chloride 101 Carbon Dioxide 29 BUN 17 Creatinine 0.80 Estim Creat Clear Calc 86 Estimated GFR > 60 Glucose 118 H Uric Acid 6.5 Calcium 7.5 L Total Bilirubin 0.2 AST 74 H ALT 93 H Alkaline Phosphatase 98 Total Protein 5.0 L Albumin 2.3 L RPR Non-reactive Imaging Radiologist's impression: Impressions Venous Doppler Study 10/07/19 12:40 IMPRESSION: 1. Patent bilateral lower extremity veins. No evidence of deep venous thrombosis. OB - PN A/P Plan day: 3 Plan: routine care Comments: encourage ambulation will recheck labs tomorrow am Pt currently asymtomatic Baby boy in NICU and doing well per mother. Time Spent With Patient Time: Total time spent is greater than 50% in coordination of care (as documented) at patient's floor/unit and/or counseling patient: Time with patient: 15 - 25 minutes Review of Systems Constitutional: Constitutional: Reports no additional constitutional complaints Cardiovascular: Cardiovascular: Reports no additional cardiovascular complaints Respiratory: Respiratory: Reports no additional respiratory complaints Gastrointestinal: Gastrointestinal: Reports no additional gastrointestinal complaints Genitourinary: Genitourinary: Reports no additional female genitourinary complaints Exam Const: General: comfortable, no acute distress, alert and awake Resp: Effort & Inspection: normal respiratory effort Cardio: Rate: regular rate GI: Auscultation: normal bowel sounds Other: Fundus firm and below umbilicus
[2019-10-08 11:35] VITALS: BP 143/87; PULSE 97; RESP 16; TEMP 36.8; O2SAT 99
--- NOTE | 2019-10-08 13:34 | PM.IMPN ---
Progress Note: A&P Assessment and Plan (1) Acute respiratory failure with hypoxia: Code(s): J96.01 - Acute respiratory failure with hypoxia Status: Resolved Assessment and Plan: Secondary to pulmonary edema. Pt is on room air. Clinically, she seems to be improving and denies dyspnea, pleuritic pain, and cough. CXR was repeated today and shows improvement in interstitial opacities with passive atelectasis. Discussed the importance of incentive spirometry. Should she fail to improve with diuresis, would consider chest CTA. (2) Pulmonary edema: Code(s): J81.1 - Chronic pulmonary edema Status: Resolved Assessment and Plan: She was diuresed with lasix b.i.d. IV which was transitioned to PO lasix today. Echo completed. Repeat CXR shows improvement. (3) HELLP (hemolytic anemia/elev liver enzymes/low platelets in ): Code(s): O14.20 - HELLP syndrome (HELLP), unspecified trimester Status: Acute Assessment and Plan: Dr. Colin suspects HELLP syndrome. Hb 6.3, platelets 139, AST 74, ALT 93, ALP 98. OB is on board. Discussed the case with Dr. Frias who will keep the patient for continued monitoring due to increased LFTs. The hospitalist team will sign off. Please contact with any further questions or concerns. (4) Severe preeclampsia: Code(s): O14.10 - Severe pre-eclampsia, unspecified trimester Status: Acute Assessment and Plan: Blood pressures reviewed and stable Pt denies vision changes, headache, chest pain, and SOB Continue labetalol and prn hydralazine for now Use caution with NSAIDs Pt will need close BP follow-up Additional Plan DVT Prophylaxis: SCDs Time Spent With Patient Time with patient: less than 15 minutes Subjective Date/time seen: 10/08/19 13:34 Interval history: The pt is seen and examined at bedside. She expresses that she is feeling much better today. She is on RA and in no respiratory distress. She was able to get out of bed to bathe herself without difficulty. Her pain is well-controlled. She is tolerating diet. She denies headache, dizziness, lightheadedness, and fatigue. She denies SOB, chest pain, and cough. She denies nausea, vomiting, and abdominal pain. She reports that her baby is doing well and is at [facility]. She is eager to see him. Review of Systems Review of Systems: All systems reviewed & are unremarkable except as noted in HPI and below Exam Narrative: Exam Narrative: General: Well-developed, cooperative, and in no acute distress. HEENT: Normocephalic and atraumatic. Mouth and Throat: Mucous membranes moist. Posterior pharynx without erythema or exudate. Neck: Supple without lymphadenopathy or masses. Cardiac: Regular rate and rhythm. S1 and S2 normal. No murmur appreciated. Lungs: On room air. Normal respiratory effort without accessory muscle use. Clear to auscultation bilaterally without rales, rhonchi, or wheezes. Abdomen: Bowel sounds present in all four quadrants. Abdomen is soft, non-distended, and non-tender. Extremities: Pitting edema to the lower extremities bilaterally. Skin: Warm and dry. Neurological: Alert and oriented. No focal neurological deficits noted. Speech is clear. Psychiatric: Judgment and insight intact. Mood and affect normal. Objective Data Vital Signs Vital Signs: Vital Signs - 24 hr 10/07/19 14:00 10/07/19 15:00 10/07/19 18:40 Temperature 99.1 F 98.7 F Pulse Rate 95 97 100 Respiratory Rate 16 16 Blood Pressure 139/88 127/87 Pulse Oximetry 98 98 10/07/19 21:18 10/07/19 23:23 10/08/19 04:56 Temperature 98.8 F 99.3 F Pulse Rate 87 86 100 Respiratory Rate 16 16 Blood Pressure 139/94 H 133/81 Pulse Oximetry 99 100 10/08/19 07:30 10/08/19 11:35 Temperature 99.6 F 98.3 F Pulse Rate 87 97 Respiratory Rate 18 16 Blood Pressure 124/83 143/87 H Pulse Oximetry 98 99 Intake/Output Intake/Output: Inta
[2019-10-08 16:20] VITALS: BP 146/95; PULSE 101
[2019-10-08 20:00] VITALS: BP 153/93; PULSE 98; RESP 18; TEMP 36.9; O2SAT 98
[2019-10-08 20:19] VITALS: PULSE 97
[2019-10-09] VITALS (14 sets, daily range): BP systolic 134–159; BP diastolic 77–107; PULSE 77–100; RESP 16–18; TEMP 36.6–36.9; O2SAT 98–100
[2019-10-09 08:28] LABS: Hematocrit 21.7 % (37.0-47.0); Mean Corpuscular HGB Conc 31.8 g/dl (32-36); Mean Corpuscular Hemoglobin 27.9 pg (26-34); Mean Corpuscular Volume 87.9 fl (80-100); Mean Platelet Volume 13.5 fl (7.4-10.4); Platelet Count Result 183 k/mm3 (150-375); Red Blood Count 2.47 M/mm3 (4.2-5.4); Red Cell Distribution Width 16.3 % (11.5-14.5)
[2019-10-09 08:29] LABS: Uric Acid 5.5 mg/dL (2.5-7.5)
[2019-10-09 08:35] LABS: Hemoglobin 6.9 g/dL (12.0-15.0)
[2019-10-09 08:36] LABS: Alanine Aminotransferase 96 U/L (4-35); Albumin Level 2.8 g/dL (3.5-5.1); Alkaline Phosphatase 107 U/L (38-126); Aspartate Amino Transferase 62 U/L (14-36); Bilirubin,Total 0.2 mg/dL (0.2-1.3); Blood Urea Nitrogen 12 mg/dL (7-17); Carbon Dioxide 27 mmol/L (22-30); Chloride 98 mmol/L (98-107); Estimated CRCL calculation 98 ml/min; Estimated Glomerular Filt Rate > 60; Glucose 82 mg/dL (65-105); Lactate Dehydrogenase 692 U/L (313-618); Potassium 4.7 mmol/L (3.4-5.0); Sodium 134 mmol/L (137-145)
[2019-10-09 08:50] LABS: Hypochromasia 2+ (NORMAL); Platelet Estimate Adequate (Adequate); Stomatocytes 1+ (NORMAL); Target Cells 1+ (NORMAL)
[2019-10-09] MEDS: LABETALOL HCL 100 MG TABLET 300 MG PO ×3 (09:04→22:08)
[2019-10-09] MEDS: FUROSEMIDE 20 MG TABLET PO ×2 (09:04→19:14)
[2019-10-09] MEDS: POLYSACCHARIDE IRON COMPLEX 150 MG CAPSULE PO ×2 (09:04→19:13)
[2019-10-09] MEDS: hydroCHLOROthiazide 12.5 MG CAPSULE PO (09:27)
[2019-10-09 13:10] LABS: Haptoglobin 114 mg/dL (43-212)
[2019-10-09] MEDS: hydrALAZINE HCL 20 MG/ML VIAL 10 MG IV PUSH (16:42)
--- NOTE | 2019-10-09 16:55 | PM.OBPNVD ---
OB - PN: Subj Subjective Date/time seen: 10/09/19 16:55 Interval history: Patient reports feeling better. ambulating with out assistance does not feel fatigue or dizzy. denies headache or vison changes. [place] baby status: doing well, bottle feeding well and NICU OB - PN: Obj Data Labs CBC & Chem 7: 10/09/19 07:44 10/09/19 07:44 Labs: Laboratory Results - last 24 hr 10/06/19 10/09/19 10/09/19 16:40 07:44 07:44 WBC 14.0 H RBC 2.47 L Hgb 6.9 L* Hct 21.7 L MCV 87.9 MCH 27.9 MCHC 31.8 L RDW 16.3 H Plt Count 183 MPV 13.5 H Immature Gran % (Auto) Not Reportable Neut % (Auto) Not Reportable Lymph % (Auto) Not Reportable [place] % (Auto) Not Reportable Eos % (Auto) Not Reportable Baso % (Auto) Not Reportable Lymph # (Auto) Not Reportable [place] # (Auto) Not Reportable Eos # (Auto) Not Reportable Baso # (Auto) Not Reportable Abs Immat Gran (auto) Not Reportable Absolute Neuts (auto) Not Reportable Absolute Nucleated RBC Not Reportable Nucleated RBC % Not Reportable Platelet Estimate Adequate Hypochromasia 2+ Target Cells 1+ Stomatocytes 1+ Haptoglobin 114 Sodium 134 L Potassium 4.7 Chloride 98 Carbon Dioxide 27 BUN 12 D Creatinine 0.70 Estim Creat Clear Calc 98 Estimated GFR > 60 Glucose 82 Uric Acid Calcium 8.0 L Total Bilirubin 0.2 AST 62 H ALT 96 H Alkaline Phosphatase 107 Lactate Dehydrogenase 692 H Total Protein 6.0 L Albumin 2.8 L 10/09/19 07:44 WBC RBC Hgb Hct MCV MCH MCHC RDW Plt Count MPV Immature Gran % (Auto) Neut % (Auto) Lymph % (Auto) [place] % (Auto) Eos % (Auto) Baso % (Auto) Lymph # (Auto) [place] # (Auto) Eos # (Auto) Baso # (Auto) Abs Immat Gran (auto) Absolute Neuts (auto) Absolute Nucleated RBC Nucleated RBC % Platelet Estimate Hypochromasia Target Cells Stomatocytes Haptoglobin Sodium Potassium Chloride Carbon Dioxide BUN Creatinine Estim Creat Clear Calc Estimated GFR Glucose Uric Acid 5.5 Calcium Total Bilirubin AST ALT Alkaline Phosphatase Lactate Dehydrogenase Total Protein Albumin OB - PN A/P Assessment and Plan (1) (normal spontaneous vaginal delivery): Code(s): O80 - Encounter for full-term uncomplicated delivery Status: Acute (2) HELLP (hemolytic anemia/elev liver enzymes/low platelets in ): Code(s): O14.20 - HELLP syndrome (HELLP), unspecified trimester Status: Acute Assessment and Plan: labs recheck in am until showing drop in liver enzymes (3) Severe preeclampsia: Code(s): O14.10 - Severe pre-eclampsia, unspecified trimester Status: Acute Assessment and Plan: BPs rising Patient not breast feeding to add norvasc and hctz to blood pressure medications. (4) Acute respiratory failure with hypoxia: Code(s): J96.01 - Acute respiratory failure with hypoxia Status: Resolved Assessment and Plan: improved appreciate medicine consult. (5) Pulmonary edema: Code(s): J81.1 - Chronic pulmonary edema Status: Resolved Assessment and Plan: improved Time Spent With Patient Time: Total time spent is greater than 50% in coordination of care (as documented) at patient's floor/unit and/or counseling patient: Exam Psych: Other: firm fundus below umbilicus , 2 + edema to knee.
[2019-10-09] MEDS: AMLODIPINE BESYLATE 5 MG TABLET PO (19:41)
[2019-10-10 04:00] VITALS: BP 124/78; PULSE 86; RESP 16; TEMP 36.6; O2SAT 100
[2019-10-10 05:56] LABS: Alanine Aminotransferase 94 U/L (4-35); Albumin Level 2.9 g/dL (3.5-5.1); Alkaline Phosphatase 100 U/L (38-126); Aspartate Amino Transferase 58 U/L (14-36); Bilirubin,Total 0.4 mg/dL (0.2-1.3); Blood Urea Nitrogen 17 mg/dL (7-17); Calcium 8.2 mg/dL (8.4-10.2); Carbon Dioxide 26 mmol/L (22-30); Chloride 99 mmol/L (98-107); Estimated CRCL calculation 86 ml/min; Estimated Glomerular Filt Rate > 60; Glucose 83 mg/dL (65-105); Potassium 4.5 mmol/L (3.4-5.0); Sodium 135 mmol/L (137-145)
[2019-10-10 06:01] VITALS: PULSE 83
[2019-10-10] MEDS: LABETALOL HCL 100 MG TABLET 300 MG PO (06:01)
--- NOTE | 2019-10-10 08:00 | PC.NURSE ---
PT introductions made and plan of care discussed per post , pain management, bottle feeding, infant at [facility], daily care activities and pending discharge to home. PT verbalized understanding of such care.
[2019-10-10 08:20] VITALS: BP 129/86; PULSE 96; RESP 16; TEMP 37; O2SAT 100
[2019-10-10] MEDS: FUROSEMIDE 20 MG TABLET PO (09:40)
[2019-10-10] MEDS: POLYSACCHARIDE IRON COMPLEX 150 MG CAPSULE PO (09:40)
[2019-10-10] MEDS: AMLODIPINE BESYLATE 5 MG TABLET PO (09:40)
[2019-10-10] MEDS: FERROUS SULFATE 324 MG TABLET PO (09:41)
--- NOTE | 2019-10-10 10:40 | PC.NURSE ---
PT received discharge instructions per protocol and pt verbalized understanding of such care.
--- NOTE | 2019-10-10 10:52 | PC.NURSE ---
PT discharged to home via wheelchair to waiting car accompanied by her mother. PT discharge follow up with Dr Ramirez confirmed
--- NOTE | 2019-11-01 09:34 | PM.OBDSVD ---
DS: Diagnosis Admitting Diagnosis Admitting Diagnosis: Encounter for severe preeclampsia with help features, pulmonary edema supervision of normal , unspecified, third trimester OB - DS: Summary OB Procedures : PIH Mgmt OB Procedures Intrapartum: Forceps OB Procedures: : Other (pulmonary edema) Peripartum Data Delivery Method: Assisted Delivery Laceration description: Perineal - 2nd Degree Time Spent with Patient Time attestation: Total time spent providing and/or coordinating discharge services: DS: Data Data Completed and Pending Completed studies during hospitalization: Pending at discharge 10/06/19 14:46 Surgical [PTH] Routine Discharge Plan Discharge Attending physician on discharge: Jimenez Colin Consulting providers: Indy Valadez ; Ana Paula Ramos ; Wilbert Burton ; Kandy Roberson ; Tomas Rob Discharging Clinician: Jimenez Colin Patient Disposition: Home, Self-Care Activity: may shower and pelvic rest Diet: regular Discharge Instructions: Education: Mom and Baby Guide Given to: Mother Follow-Up: Call your delivering provider's office for an appointment to be seen in: Dr Ramirez tomorrow 10/11/2019 at 0900 Mom and baby should come to the [facility] for the follow-up appointment. Appointment Date/Time: October 11, 2019 at 9:00 am What to expect at your follow-up visit: Blood Pressure Check Call [phone] if you are unable to keep your appointment time. BREAST CARE: 1. Wear a snug supportive bra. 2. For engorgement discomfort: Bottle Feeding: A. May apply ice packs PERINEAL CARE: 1. Until bleeding stops, use your akila bottle after urinating 2. Change your pad frequently throughout the day 3. You may take sitz baths several times a day (fill your bathtub with warm water and soak for 20 minutes.) Do NOT bathe in the water 4. No tub baths until seen by your physician - You may shower ACTIVITY: 1. Rest as much as possible. 2. Do not exercise or lift anything heavier than your baby (such as laundry or other children.) 3. Avoid stairs or driving as much as possible. 4. Do not put anything into the vagina. No douching, tampons, or sexual activity until seen by physician. NOTIFY PHYSICIAN IF YOU HAVE ANY QUESTIONS OR IF ANY OF THE FOLLOWING SYMPTOMS OCCUR: 1. If your perineum becomes red, swollen, or more painful than what you have experienced in the hospital. 2. If your vaginal bleeding becomes foul smelling. 3. If your vaginal bleeding becomes more heavy than a period or if your bleeding changes from pink to bright red. However, you may pass an occasional walnut-sized clot once or twice for the first week . 4. If you experience a sharp, shooting pain in you calves. 5. If you discover a hard, reddened area on your breast or if you experience flu-like symptoms. 6. Call for temp 100.4 or greater DIET: 1. Eat regular, well-balanced meals. 2. Drink plenty of fluids daily. If , drink to thirst.Follow in with Dr. Ramirez tomorrow for BP check. Patient Instructions: Antibiotic Form, Preeclampsia During (DC) Stand Alone Forms: General Discharge Information Follow-up/Referrals: Ashley,Rickey Browne MD [Primary Care Provider] - Discharge Medications: New amlodipine [Norvasc] 5 mg Tablet 5 mg PO DAILY Qty: 30 RF: 0 docusate sodium 100 mg Capsule 100 mg PO BID PRN (Reason: Constipation) Qty: 60 RF: 0 furosemide 20 mg Tablet 20 mg PO BID Qty: 14 RF: 0 labetalol 100 mg Tablet 300 mg PO Q8HR Qty: 180 RF: 0 acetaminophen [Mapap (acetaminophen)] 325 mg Tablet 650 mg PO Q6H PRN (Reason: Mild Pain (1-3) Or Headache) Qty: 60 RF: 0 Continued cyanocobalamin (vitamin B-12) 1,000 mcg/mL solution 1,000 mcg subcut MONTHLY RF: 0 ferrous sulfate 325 mg (65 mg iron) tablet 325 mg PO DAILY RF: 0 a
== END 2019-10-10 10:52 | disposition home or self-care (01) | DRG 560 ==
LOC: ANHOBOP 16:31 → ANHOBPP 16:39 → ANHOBOP 17:11 → ANHOBPP 17:11 → ANHLDR 10-06 09:47 → ANHIMU 10-06 18:48 → ANHOB2 10-08 09:34 → ANHIMU 10-09 10:17 → ANHLDR 10-09 10:17 → ANHOB2 10-09 10:17 → ANHOBPP 10-09 10:17
PROVIDERS: Obstetrics & Gynecology; Obstetrics & Gynecology Gynecology; Physician Assistant; Admitting Provider Obstetrics & Gynecology; PCP Obstetrics & Gynecology; Visit Provider Obstetrics & Gynecology
DX: O14.24 HELLP syndrome, complicating childbirth (principal); Z37.0 Single live birth; Z3A.34 34 weeks gestation of pregnancy; O36.8330 Maternal care for abnormalities of the fetal heart rate or rhythm, third trimester, not applicable or unspecified; O77.0 Labor and delivery complicated by meconium in amniotic fluid; O75.81 Maternal exhaustion complicating labor and delivery; O70.1 Second degree perineal laceration during delivery; O60.14X0 Preterm labor third trimester with preterm delivery third trimester, not applicable or unspecified; O99.89 Other specified diseases and conditions complicating pregnancy, childbirth and the puerperium; J81.1 Chronic pulmonary edema; J96.01 Acute respiratory failure with hypoxia; O99.02 Anemia complicating childbirth; D50.9 Iron deficiency anemia, unspecified; O99.344 Other mental disorders complicating childbirth; F32.9 Major depressive disorder, single episode, unspecified
CPT/HCPCS: 36415; 71045; 80053; 81001; 82570; 83010; 83615; 83880; 84156; 84550; 85025; 85027; 85046; 85055; 85380; 85384; 85610; 85730; 86592; 86850; 86900; 86901; 87086; 87088; 88307; 93306; 93970; A9270; J0290; J0360; J0702; J1940; J2405; J2590; J2795; J3475; J7030; J7120

== ENCOUNTER 2019-10-12 12:13 | Outpatient (CLI) | payer OTHER, SELFPAY | END 2019-10-12 12:14 | disposition home or self-care (01) | PROVIDERS: PCP Obstetrics & Gynecology; Visit Provider Obstetrics & Gynecology Gynecology | DX: Z01.30 Encounter for examination of blood pressure without abnormal findings (principal) | CPT/HCPCS: 99199 ==